=== PATIENT | male | born 1975 | race Caucasian/White ===

== ENCOUNTER 2017-10-07 21:24 | Emergency (ER) | payer OTHER ==
[~2017-10-07] VITALS: Ht 177.8 cm; Wt 94.3 kg
[2017-10-07 23:04] LABS: ABSOLUTE NEUTROPHILS 4.1 thou/uL (1.4-8.2); BASOPHILS 1.5 % (0.0-2.0); EOSINOPHILS 3.7 % (0.0-3.0); HEMATOCRIT 43.3 % (42.0-52.0); HEMOGLOBIN 14.8 gm/dL (14.0-18.0); LYMPHOCYTES 33.9 % (24.0-44.0); MCHC 34.1 g/dL (28.0-37.0); MCV 88.2 fL (80.0-100.0); PLATELET COUNT 220 thou/uL (150-400); POLYS 53.9 % (36.0-66.0); RBC 4.92 mil/uL (4.50-6.00); WBC 7.6 thou/uL (4.0-11.0)
[2017-10-07] MEDS ORDERED: HYDROCODONE-AP1 EAC6 PO (23:11)
[2017-10-07 23:16] LABS: CALCIUM 9.1 mg/dL (8.5-10.1); POTASSIUM 3.7 mmol/L (3.5-5.1)
== END 2017-10-07 23:35 | disposition home or self-care (01) ==
LOC: ER 21:24
PROVIDERS: Physician Assistant
DX: K42.9 Umbilical hernia without obstruction or gangrene (principal)

== ENCOUNTER 2017-10-10 19:59 | Emergency (ER) | payer OTHER ==
[~2017-10-10] VITALS: Ht 175.3 cm; Wt 94.3 kg
[~2017-10-10 19:59] MED LIST: HYDROCODONE-AP1 EAC6 PO
[2017-10-10 20:55] LABS: HEMOGLOBIN 14.4 gm/dL (14.0-18.0); MCH 30.1 pg (26.0-34.0); MCHC 34.3 g/dL (28.0-37.0); MCV 87.8 fL (80.0-100.0); RBC 4.78 mil/uL (4.50-6.00); WBC 7.4 thou/uL (4.0-11.0)
[2017-10-10 21:07] LABS: CALCIUM 9.2 mg/dL (8.5-10.1); CREATININE 1.1 mg/dL (0.7-1.3); POTASSIUM 3.7 mmol/L (3.5-5.1)
[2017-10-10 21:13] LABS: ALBUMIN 3.8 g/dL (3.4-5.0); TOTAL BILIRUBIN 0.3 mg/dL (<0.1-1.0)
[2017-10-10] MEDS ORDERED: SENNA S TABLET1 EACH PO (21:48)
[2017-10-10] MEDS ORDERED: MIRALAX17 GM PO (21:48)
[2017-10-10] MEDS ORDERED: NORCO 5-325 TA1 EACH PO (21:50)
== END 2017-10-10 22:17 | disposition home or self-care (01) ==
LOC: ER 19:59
PROVIDERS: Emergency Medicine
DX: K42.9 Umbilical hernia without obstruction or gangrene (principal)